=== PATIENT | male | born 1950 | race Caucasian/White ===

== ENCOUNTER 2017-08-16 08:59 | Emergency (ER) | payer MEDICARE ==
[2017-08-16 09:35] LABS: ABS Basophils 0.1 10^3/ul (0-0.2); ABS Eosinophils 0 10^3/ul (0-0.6); ABS Lymphocytes 1.8 10^3/ul (1.0-4.8); ABS Monocytes 0.7 10^3/ul (0-0.8); ABS Neutrophils 7.1 10^3/ul (1.5-7.7); ABS Nucleated RBC 0.01 10^3/ul; Eosinophil % 0.2 % (0-6); Hematocrit 38 % (42-52); Hemoglobin 13.1 g/dl (14.0-18.0); Lymphocyte % 18.3 % (25-47); Mean Corpuscular HGB Conc 34 g/dl (31-36); Mean Corpuscular Hemoglobin 30 pg (27-31); Mean Corpuscular Volume 87 fL (80-94); Mean Platelet Volume 8 um3 (7.4-10.4); Nucleated Red Blood Cells % 0.1; Platelet Count 304 10^3/ul (150-450); Red Blood Count 4.41 10^6/ul (4.0-5.4); Red Cell Distribution Width 14 % (10.5-15); White Blood Count 9.6 10^3/ul (3.5-10.8)
[2017-08-16 09:49] LABS: EGFR Non-African American 66.5 (>60)
[2017-08-16 09:52] LABS: INR 1.79 (0.77-1.02)
[2017-08-16] MEDS ORDERED: Pantoprazole IV* 40 MG IV ONE (10:01)
--- NOTE | 2017-08-16 10:04 | RAD ---
Indication: GI bleed, atrial fibrillation. Comparison: February 07, 2015 Technique: Upright AP 0940 hours Report: The extreme LEFT lung apex and periphery of the LEFT costophrenic angle are excluded from the [id number]. Clear visualized lungs and pleural spaces. Negative for pneumothorax. The heart, pulmonary vasculature, and mediastinal contours are unremarkable. IMPRESSION: No evidence for acute intrathoracic disease.
[2017-08-16] MEDS ORDERED: NS 0.9% 1000 ML* 1,000 ML IV ONE (10:31)
[2017-08-16] MEDS ORDERED: Labetalol IV* 5 MG/ML 20 ML VIAL IV PUSH ONE (10:35)
[2017-08-16] MEDS ORDERED: Pantoprazole IV* 80 MG in NS 0.9% 250 ML* 250 ML IVPB ONE (11:00)
--- NOTE | 2017-08-16 11:01 | ED ---
Brooks Solis Angela, scribed for Sara Henriquez MD on 08/16/17 at 0954 . GI/ HPI - HPI Summary HPI Summary: This pt is a 66 y/o male presenting to [facility] c/o bloody stools since yesterday at 18:00. Pt reports he has never had this before. Pt notes there was red blood in his stool without any clots all last night. He states he had "runny diarrhea " every couple of hours last night. He denies abd pain with this hematochezia. Pt additionally states feeling nauseous. Pt denies abd pain, vomiting, chest pain. He reports he had a colonoscopy done 3 months ago in [facility] in [place] and states "they left clips in me." States he does not know the results of that colonoscopy. PMHx includes atrial fibrillation. Pt is currently on baby aspirin and Coumadin. Although med list shows pt is on Eliquis, pt states he is on Coumadin. - History of Current Complaint Chief Complaint: EDGIBleed Time Seen by Provider: 08/16/17 09:17 Stated Complaint: BLOOD IN STOOL Hx Obtained From: Patient Onset/Duration: Started Days Ago - 1, Atraumatic, Still Present Timing: Constant, Lasting Days - 1 Severity: Severe Current Severity: Severe Vaginal Bleeding Description: Dark Red Pain Intensity: 0 Location of Pain: None Associated Signs and Symptoms: Positive: Nausea, Bright Red Blood w/Stool, Blood w/Stool, Diarrhea, Other: - NEG: abd pain. Negative: Vomiting, Chest Pain Aggravating Factor(s): Nothing Alleviating Factor(s): Nothing - Risk Factors GI Bleed Risk Factor(s): ASA, Coumadin - Allergy/Home Medications Allergies/Adverse Reactions: Allergies Allergy/AdvReac Type Severity Reaction Status Date / Time No Known Allergies Allergy Verified 07/31/14 16:59 Home Medications: Home Medications Apixaban* [Eliquis*] 5 mg PO BID 08/16/17 [History Confirmed 08/16/17] Aspirin [Aspirin 81 MG TAB] 81 mg PO DAILY 08/16/17 [History Confirmed 08/16/17] Atorvastatin* [Lipitor 40 MG*] 40 mg PO DAILY 08/16/17 [History Confirmed ] Diltiazem HCl Coated Beads [Cartia Xt] 240 mg PO DAILY 08/16/17 [History Confirmed 08/16/17] Lisinopril/HCTZ 20/12.5(NF) [Zestoretic 20/12.5(NF)] 20 mg PO BID 08/16/17 [ History Confirmed 08/16/17] PMH/Surg Hx/FS Hx/Imm Hx Previously Healthy: No Endocrine/Hematology History: Denies: Hx Diabetes Cardiovascular History: Reports: Hx Atrial Fibrillation, Hx Hypertension Denies: Hx Pacemaker/ICD History: Denies: Hx Renal Disease Sensory History: Reports: Hx Contacts or Glasses Denies: Hx Hearing Aid Opthamlomology History: Reports: Hx Contacts or Glasses Psychiatric History: Denies: Hx Panic Disorder - Surgical History Surgery Procedure, Year, and Place: colonoscopy 04/2017 Infectious Disease History: No Infectious Disease History: Denies: Traveled Outside the [place] in Last 30 Days - Family History Known Family History: Positive: Other - [place]. Mother: from old age. Father: stroke - Social History Occupation: Retired Lives: Alone Alcohol Use: Occasionally Substance Use Type: Reports: None Smoking Status (MU): Former Smoker Review of Systems Negative: Fever Negative: Chest Pain Respiratory: Negative Gastrointestinal: Other - bloody stools Positive: Diarrhea. Negative: Abdominal Pain, Vomiting Genitourinary: Negative Musculoskeletal: Negative Neurological: Negative Psychological: Normal All Other Systems Reviewed And Are Negative: Yes Physical Exam - Summary Physical Exam Summary: Appearance: Ill-appearing, no pain distress, Well-nourished, hypertensive, pulse 85 (pt on beta katelyn) Skin: Warm, color reflects adequate perfusion Head: Normal Head/Face inspection Eyes: Conjunctiva clear ENT: Normal inspection Neck: Supple, no nodes, no JVD Respiratory: Lungs clear, Normal breath sounds, no respiratory distress Cardio: RRR, No murmur, pulses normal, brisk capillary refill Abdomen: soft, nontender, no masses, no guarding, no rebound Rectal Exam: FRANCES Peter was present as tube trailer filler. Prostate is normal. No masses. Good rectal tone. There is colten stool. No external hemorrhoids. Musculoskeletal: Strength Intact/ ROM intact. No calf tenderness. No edema. Neuro: Alert, muscle tone normal, facial symmetry, speech normal, sensory/motor intact Psychological: Normal Triage Information Reviewed: Yes Vital Signs On Initial Exam: Initial Vitals Temp Pulse Resp BP Pulse Ox 97.9 F 85 22 202/106 100 08/16/17 09:01 08/16/17 09:01 08/16/17 09:01 08/16/17 09:01 08/16/17 09:01 Vital Signs Reviewed: Yes - Emerald Coma Scale Coma Scale Total: 15 Diagnostics - Vital Signs Vital Signs Temp Pulse Resp BP Pulse Ox 08/16/17 09:01 97.9 F 85 22 202/106 100 - Laboratory Lab Results: Lab Results 08/16/17 08/16/17 Range/Units 09:24 09:24 WBC 9.6 (3.5-10.8) 10^3/ul RBC 4.41 (4.0-5.4) 10^6/ul Hgb 13.1 L (14.0-18.0) g/dl Hct 38 L (42-52) % MCV 87 (80-94) fL MCH 30 (27-31) pg MCHC 34 (31-36) g/dl RDW 14 (10.5-15) % Plt Count 304 (150-450) 10^3/ul MPV 8 (7.4-10.4) um3 Neut % (Auto) 73.3 (38-83) % Lymph % (Auto) 18.3 L (25-47) % Barber % (Auto) 7.3 (1-9) % Eos % (Auto) 0.2 (0-6) % Baso % (Auto) 0.9 (0-2) % Absolute Neuts (auto) 7.1 (1.5-7.7) 10^3/ul Absolute Lymphs (auto) 1.8 (1.0-4.8) 10^3/ul Absolute Monos (auto) 0.7 (0-0.8) 10^3/ul Absolute Eos (auto) 0 (0-0.6) 10^3/ul Absolute Basos (auto) 0.1 (0-0.2) 10^3/ul Absolute Nucleated RBC 0.01 10^3/ul Nucleated RBC % 0.1 Blood Type Pending Antibody Screen Pending Result Diagrams: 08/16/17 09:24 08/16/17 09:24 Lab Statement: Any lab studies that have been ordered have been reviewed, and results considered in the medical decision making process. - Radiology Chest XR Xray Interpretation: No Acute Changes - IMPRESSION: No evidence for acute intrathoracic disease. Dr. Henriquez has reviewed this radiology report. Radiology Interpretation Completed By: Radiologist - EKG 09:31 Cardiac Rate: Tachycardia EKG Rhythm: Atrial Fibrillation - at 103 bpm EKG Interpretation: Nl AV conduction time. Nl QTc. Nl axis. Non-specific ST-T wave changes. Re-Evaluation - Re-Evaluation First Eval Re-Evaluation Time: 10:24 Change: Unchanged Comment: I advised the pt that he is going to be transferred to [facility] because there is no GI coverage at [facility] today. Pt expresses concern because he doesn't know how he'll get home from [facility]. BP remains high 182/101 P 85 , denies abd pain, no vomiting in ED. Started on protonix drip. GIGU Course/Dx - Course Course Of Treatment: Pt medications reviewed this visit. High blood pressure noted. EKG shows atrial fibrillation at 103 bpm with normal AV conduction time, normal QTc, normal axis, and non-specific ST-T wave changes. Chest XR reveals no evidence for acute intrathoracic disease. In the ED course the pt was given IV fluids, protonix 40mg IV and protonix drip started, and labetalol 10mg IV. I discussed pt care with the Dr. Street from [facility], who accepted the pt for transfer at 10:25am. I advised the pt that he is going to be transferred to [facility]. Pt expresses concern because he doesn't know how he'll get home from [facility]. Pt understands and is agreeable with the plan to transfer. - Diagnoses Differential Diagnoses - Male: Abdominal Aortic Aneurysm, Appendicitis, Bowel Obstruction, Colitis, Esophagitis/Gastritis, Esophageal Varices, Gastritis Provider Diagnoses: GI bleed, Hypertension, poor control, Afib, Contraindication to anticoagulation therapy - Physician Notifications Discussed Care Of Patient With: Dr. Street Time Discussed With Above Provider: 10:25 Instructed by Provider To: Transfer - I discussed pt care with the Dr. Street from [facility], who accepted the pt for transfer. Reason For Transfer: Specialty available at [facility] but not director of operations. - Critical Care Time Critical Care Time: 30-74 min - 30 minutes Discharge - Discharge Plan Condition: Guarded Disposition: TRANS HIGHER LVL OF CARE FAC Discharge Disposition Comment: Caleb Melendez Referrals: No Primary Care Phys,NOPCP [Primary Care Provider] - The documentation as recorded by the Brooks basurto Angela accurately reflects the service I personally performed and the decisions made by me, Sara Henriquez MD.
[2017-08-16 11:19] VITALS: BP 174/85
== END 2017-08-16 11:18 | disposition short-term general hospital (02) ==
LOC: ED 08:59
DX: K92.2 Gastrointestinal hemorrhage, unspecified (principal); I10 Essential (primary) hypertension; I48.91 Unspecified atrial fibrillation; Z79.01 Long term (current) use of anticoagulants; R11.0 Nausea; R19.7 Diarrhea, unspecified; Z87.891 Personal history of nicotine dependence
CPT/HCPCS: 36415; 71010; 80053; 82272; 85025; 85610; 85730; 86850; 86900; 86901; 93005; 96365; 96375; 99284

== ENCOUNTER 2022-06-20 08:54 | Inpatient (IN) ==
[2022-06-20] MEDS ORDERED: Lactated Ringers 1000 ml BAG 1,000 ML IV ONE (09:17)
[2022-06-20] MEDS ORDERED: Albuterol/Ipratropium NEB.SOL (2.5/0.5 MG) 3 ML NEB.SOLN INH ONE (09:21)
[2022-06-20] MEDS ORDERED: methylPREDNISolone SOD SUCC 125 mg 2 ML VIAL IV ONE (09:21)
[2022-06-20 11:19] LABS: Hematocrit 40 % (42-52); Mean Corpuscular HGB Conc 32 g/dL (31-36); Mean Corpuscular Hemoglobin 27 pg (27-31); Mean Corpuscular Volume 85 fL (80-94); Mean Platelet Volume 8.1 fL (7.4-10.4); Platelet Count 302 10^3/uL (150-450); Red Blood Count 4.73 10^6 /uL (4.18-5.48); Red Cell Distribution Width 17 % (10-15); White Blood Count 18.4 10^3/uL (3.5-10.8)
[2022-06-20 11:40] LABS: INR 1.51 (0.89-1.11)
[2022-06-20] MEDS ORDERED: Furosemide 40 mg/4 ml IV VIAL IV ONE (11:59)
[2022-06-20 12:05] LABS: Albumin 3.6 g/dL (3.2-5.2); Albumin/Globulin Ratio 1.1 (1-3); Calcium 8.2 mg/dL (8.6-10.3); Globulin 3.3 g/dL (2-4); Potassium 4.8 mmol/L (3.5-5.0); Total Bilirubin 2.2 mg/dL (0.2-1.0); Total Protein 6.9 g/dL (6.4-8.9); eGFR CKD-EPI 73.8 (>60)
[2022-06-20 12:12] LABS: ABS Lymphocytes 0.6 10^3/ul (1.0-4.8); ABS Monocytes 1.6 10^3/ul (0-0.8); ABS Neutrophils 16.2 10^3/ul (1.5-7.7); Eosinophil % 0.1 %; Lymphocyte % 3.1 %; Nucleated Red Blood Cells % 0.1
[2022-06-20 13:43] LABS: Urine Appearance Cloudy; Urine Bilirubin Negative (Negative); Urine Blood Negative (Negative); Urine Color Amber; Urine Glucose Negative (Negative); Urine Ketones Negative (Negative); Urine Nitrite Negative (Negative); Urine Protein 2+(100 mg/dL) (Negative); Urine Specific Gravity 1.017 (1.002-1.030); Urine Urobilinogen Negative (Negative)
[2022-06-20 13:50] LABS: Urine Bacteria Absent (Absent); Urine Red Blood Cell Trace(0-2/hpf) (Absent); Urine Squamous Epithelial Cell Present (Absent); Urine White Blood Cell Trace(0-5/hpf) (Absent)
[2022-06-20 13:52] LABS: Venous Bicarbonate HCO3 21.6 mmol/L (24-28)
[2022-06-20 13:54] LABS: High Sensitivity Troponin 1 Hr 4409 pg/mL (<20)
[2022-06-20] MEDS ORDERED: Aspirin EC 325 mg TAB.EC PO ONE (13:58)
[2022-06-20] MEDS ORDERED: Furosemide 20 mg/2 ml IV VIAL IV ONE (14:16)
[2022-06-20] MEDS ORDERED: Heparin 5000 UNITS/ML 1 mL VIAL IV ONE (15:00)
[2022-06-20 15:09] LABS: ABS Basophils 0.1 10^3/ul (0-0.2); ABS Lymphocytes 0.3 10^3/ul (1.0-4.8); ABS Monocytes 0.4 10^3/ul (0-0.8); ABS Neutrophils 15.3 10^3/ul (1.5-7.7); Hematocrit 40 % (42-52); Mean Corpuscular HGB Conc 32 g/dL (31-36); Mean Corpuscular Hemoglobin 28 pg (27-31); Mean Corpuscular Volume 85 fL (80-94); Mean Platelet Volume 7.8 fL (7.4-10.4); Nucleated Red Blood Cells % 0.1; Platelet Count 284 10^3/uL (150-450); Red Cell Distribution Width 17 % (10-15); White Blood Count 16.1 10^3/uL (3.5-10.8)
[2022-06-20] MEDS ORDERED: Nitroglycerin 0.6 mg TAB SL PRN (15:46)
[2022-06-20 15:56] LABS: eGFR CKD-EPI 68.5 (>60)
[2022-06-20] MEDS: Heparin DRIP 25,000 UNITS BAG 25,000 UNITS/500 ML BAG IV SCH (17:23)
[2022-06-20] MEDS: Heparin 5000 UNITS/ML 1 mL VIAL IV SCH (17:24)
[2022-06-20] MEDS: Petroleum Jelly 1.75 Oz (small jar) TOPICAL SCH (22:16)
[2022-06-20] MEDS: Triamcinolone 0.025% OINT 15 GM TUBE TOPICAL SCH (22:18)
[2022-06-21] MEDS: Heparin 5000 UNITS/ML 1 mL VIAL IV SCH (03:26)
[2022-06-21 06:28] LABS: ABS Basophils 0.1 10^3/ul (0-0.2); ABS Lymphocytes 0.6 10^3/ul (1.0-4.8); ABS Monocytes 0.7 10^3/ul (0-0.8); ABS Neutrophils 14.8 10^3/ul (1.5-7.7); Hematocrit 36 % (42-52); Hemoglobin 11.7 g/dL (14.0-18.0); Lymphocyte % 3.9 %; Mean Corpuscular HGB Conc 33 g/dL (31-36); Mean Corpuscular Hemoglobin 28 pg (27-31); Mean Corpuscular Volume 84 fL (80-94); Mean Platelet Volume 7.8 fL (7.4-10.4); Platelet Count 276 10^3/uL (150-450); Red Blood Count 4.24 10^6 /uL (4.18-5.48); Red Cell Distribution Width 17 % (10-15); White Blood Count 16.2 10^3/uL (3.5-10.8)
[2022-06-21 07:31] LABS: Albumin 3.4 g/dL (3.2-5.2); Calcium 8.6 mg/dL (8.6-10.3); Globulin 3.3 g/dL (2-4); Magnesium 2.2 mg/dL (1.9-2.7); Potassium 4.6 mmol/L (3.5-5.0); Total Bilirubin 1.4 mg/dL (0.2-1.0); Total Protein 6.7 g/dL (6.4-8.9); eGFR CKD-EPI 70.7 (>60)
[2022-06-21] MEDS: Heparin DRIP 25,000 UNITS BAG 25,000 UNITS/500 ML BAG IV SCH ×3 (08:05→19:46)
[2022-06-21 08:11] LABS: Ferritin 334.9 ng/mL (24-336)
[2022-06-21] MEDS ORDERED: VERAPAMIL 2.5 MG/ML 2 ML VIAL ** 5 mg/2 ml ONE ×2 (09:03→09:09)
[2022-06-21] MEDS ORDERED: Midazolam 5 mg/5 ml VIAL 1 mg/ml 5 ml VIAL (5 mg) ONE (09:03)
[2022-06-21] MEDS ORDERED: fentaNYL 100 mcg/2 ml 50 MCG/ML VIAL ONE ×2 (09:03→11:00)
[2022-06-21] MEDS ORDERED: nitroGLYCERIN DRIP 25,000 MCG/250 ML BTL ONE (09:03)
[2022-06-21] MEDS ORDERED: Heparin 1,000 UNIT/ML 10 ml (10,000 UNITS) CATHLAB/DIALYSIS ONE ×2 (09:03→10:37)
[2022-06-21] MEDS ORDERED: Heparin 2 UNITS/ML 1000 mls 2,000 ML IV ONE (09:03)
[2022-06-21] MEDS ORDERED: Iohexol 350 (CONTRAST) 100 ML PAK IV ONE ×4 (09:04→10:45)
[2022-06-21] MEDS ORDERED: Lidocaine 1% MPF 5 ML VIAL ONE (09:04)
[2022-06-21] MEDS ORDERED: niCARdipine 0.1MG/ML IVPREMIX 20 MG/200 ML BAG IV ONE (10:23)
[2022-06-21] MEDS ORDERED: Eptifibatide IV (Load dose) 2 MG/ML 10 ml VIAL ONE ×2 (10:44→10:51)
[2022-06-21] MEDS ORDERED: Ondansetron 4 mg VIAL 2 MG/ML 2 ml VIAL IV PRN (11:35)
[2022-06-21] MEDS ORDERED: Furosemide 40 mg/4 ml IV VIAL ONE (12:02)
[2022-06-21] MEDS ORDERED: Furosemide 40 mg/4 ml IV VIAL IV SLOW PU ONE (12:03)
[2022-06-21] MEDS ORDERED: Furosemide 20 mg/2 ml IV VIAL IV SLOW PU ONE (13:21)
[2022-06-21] MEDS: Aspirin EC 81 mg TAB.EC (enteric coated) PO SCH (13:51)
[2022-06-21] MEDS: Metoprolol Tartrate 5 mg VIAL 5 ml VIAL (1 mg/ml) IV PRN ×2 (13:51→18:40)
[2022-06-21] MEDS ORDERED: Bumetanide IV 0.25 MG/ML 4 ml VIAL (1 mg) SLOW PUSH ONE (14:09)
[2022-06-21 14:49] LABS: HDL Cholesterol 31.8 mg/dL
[2022-06-21] MEDS ORDERED: Dextrose 50% Syringe 50 ml 25 GM/50 ML SYRINGE IV PUSH PRN (15:14)
[2022-06-21] MEDS: Triamcinolone 0.025% OINT 15 GM TUBE TOPICAL SCH ×2 (16:28→19:26)
[2022-06-21] MEDS: cefTRIAXone 1 gm/50 mL D5W 1 GM/50 ML BAG IV SCH (17:11)
[2022-06-21] MEDS: Petroleum Jelly 1.75 Oz (small jar) TOPICAL SCH (22:29)
[2022-06-22 01:07] LABS: Calcium 8.3 mg/dL (8.6-10.3); Magnesium 2.2 mg/dL (1.9-2.7); Potassium 4.2 mmol/L (3.5-5.0); eGFR CKD-EPI 49.8 (>60)
[2022-06-22] MEDS: Heparin 5000 UNITS/ML 1 mL VIAL IV SCH ×2 (02:31→10:43)
[2022-06-22 05:39] LABS: ABS Lymphocytes 1.4 10^3/ul (1.0-4.8); ABS Monocytes 1.3 10^3/ul (0-0.8); ABS Neutrophils 14.1 10^3/ul (1.5-7.7); Eosinophil % 0.1 %; Hematocrit 35 % (42-52); Hemoglobin 11.4 g/dL (14.0-18.0); Lymphocyte % 8.2 %; Mean Corpuscular HGB Conc 32 g/dL (31-36); Mean Corpuscular Hemoglobin 28 pg (27-31); Mean Corpuscular Volume 85 fL (80-94); Mean Platelet Volume 7.6 fL (7.4-10.4); Platelet Count 307 10^3/uL (150-450); Red Blood Count 4.12 10^6 /uL (4.18-5.48); Red Cell Distribution Width 17 % (10-15); White Blood Count 16.8 10^3/uL (3.5-10.8)
[2022-06-22 06:12] LABS: Albumin 3.3 g/dL (3.2-5.2); Calcium 8.2 mg/dL (8.6-10.3); Globulin 3.4 g/dL (2-4); Magnesium 2.1 mg/dL (1.9-2.7); Potassium 4.2 mmol/L (3.5-5.0); Total Bilirubin 0.7 mg/dL (0.2-1.0); Total Protein 6.7 g/dL (6.4-8.9); eGFR CKD-EPI 53.2 (>60)
[2022-06-22] MEDS ORDERED: Bumetanide IV 0.25 MG/ML 4 ml VIAL (1 mg) SLOW PUSH SCH ×2 (08:01→09:00)
[2022-06-22] MEDS: Aspirin EC 81 mg TAB.EC (enteric coated) PO SCH (08:29)
[2022-06-22 08:48] LABS: TSH Ultra Thyroid Stim Horm 1.94 mcIU/mL (0.34-5.60)
[2022-06-22] MEDS ORDERED: Bumetanide IV 0.25 MG/ML 4 ml VIAL (1 mg) SLOW PUSH ONE (09:16)
[2022-06-22] MEDS: Triamcinolone 0.025% OINT 15 GM TUBE TOPICAL SCH ×2 (09:46→21:09)
[2022-06-22] MEDS: Heparin DRIP 25,000 UNITS BAG 25,000 UNITS/500 ML BAG IV SCH (12:17)
[2022-06-22] MEDS ORDERED: Metoprolol Tartrate 5 mg VIAL 5 ml VIAL (1 mg/ml) IV PRN (13:43)
[2022-06-22] MEDS: Nystatin TOP POWDER 15 GM BTL TOPICAL SCH ×2 (15:15→21:08)
[2022-06-22] MEDS: cefTRIAXone 1 gm/50 mL D5W 1 GM/50 ML BAG IV SCH (17:02)
[2022-06-22] MEDS: Petroleum Jelly 1.75 Oz (small jar) TOPICAL SCH (21:10)
[2022-06-23] MEDS: Heparin DRIP 25,000 UNITS BAG 25,000 UNITS/500 ML BAG IV SCH ×2 (00:22→12:23)
[2022-06-23 05:45] LABS: ABS Eosinophils 0.2 10^3/ul (0-0.6); ABS Lymphocytes 1.1 10^3/ul (1.0-4.8); ABS Monocytes 0.9 10^3/ul (0-0.8); ABS Neutrophils 7.7 10^3/ul (1.5-7.7); Hematocrit 34 % (42-52); Hemoglobin 11.3 g/dL (14.0-18.0); Lymphocyte % 11.2 %; Mean Corpuscular HGB Conc 34 g/dL (31-36); Mean Corpuscular Hemoglobin 28 pg (27-31); Mean Corpuscular Volume 85 fL (80-94); Mean Platelet Volume 7.7 fL (7.4-10.4); Platelet Count 297 10^3/uL (150-450); Red Cell Distribution Width 17 % (10-15); White Blood Count 9.9 10^3/uL (3.5-10.8)
[2022-06-23 06:35] LABS: Calcium 8.1 mg/dL (8.6-10.3); Magnesium 2.1 mg/dL (1.9-2.7); Potassium 4.5 mmol/L (3.5-5.0)
[2022-06-23] MEDS ORDERED: Bumetanide IV 0.25 MG/ML 4 ml VIAL (1 mg) SLOW PUSH ONE ×2 (07:22)
[2022-06-23] MEDS: Aspirin EC 81 mg TAB.EC (enteric coated) PO SCH (08:35)
[2022-06-23] MEDS: Triamcinolone 0.025% OINT 15 GM TUBE TOPICAL SCH ×2 (08:35→20:45)
[2022-06-23] MEDS: Nystatin TOP POWDER 15 GM BTL TOPICAL SCH ×2 (08:37→20:44)
[2022-06-23] MEDS ORDERED: Warfarin per PHARMACY **NOTE FOLLOW UP SCH (10:00)
[2022-06-23 11:25] LABS: INR 1.25 (0.89-1.11)
[2022-06-23] MEDS: cefTRIAXone 1 gm/50 mL D5W 1 GM/50 ML BAG IV SCH (18:01)
[2022-06-23] MEDS: Petroleum Jelly 1.75 Oz (small jar) TOPICAL SCH (20:45)
[2022-06-24] MEDS: Heparin DRIP 25,000 UNITS BAG 25,000 UNITS/500 ML BAG IV SCH (02:12)
[2022-06-24 05:26] LABS: ABS Eosinophils 0.3 10^3/ul (0-0.6); ABS Monocytes 0.9 10^3/ul (0-0.8); ABS Neutrophils 7.7 10^3/ul (1.5-7.7); Eosinophil % 3.2 %; Hematocrit 37 % (42-52); Lymphocyte % 10.1 %; Mean Corpuscular HGB Conc 33 g/dL (31-36); Mean Corpuscular Hemoglobin 28 pg (27-31); Mean Corpuscular Volume 85 fL (80-94); Mean Platelet Volume 8.1 fL (7.4-10.4); Nucleated Red Blood Cells % 0.1; Platelet Count 303 10^3/uL (150-450); Red Cell Distribution Width 17 % (10-15)
[2022-06-24 05:36] LABS: INR 1.1 (0.89-1.11)
[2022-06-24 05:45] LABS: Calcium 8.6 mg/dL (8.6-10.3); Magnesium 2.1 mg/dL (1.9-2.7); Potassium 4.4 mmol/L (3.5-5.0); eGFR CKD-EPI 63.2 (>60)
[2022-06-24] MEDS: Aspirin EC 81 mg TAB.EC (enteric coated) PO SCH (10:35)
[2022-06-24] MEDS: Nystatin TOP POWDER 15 GM BTL TOPICAL SCH ×2 (14:00→21:31)
[2022-06-24] MEDS: Triamcinolone 0.025% OINT 15 GM TUBE TOPICAL SCH ×2 (14:00→21:31)
[2022-06-24] MEDS: cefTRIAXone 1 gm/50 mL D5W 1 GM/50 ML BAG IV SCH (16:42)
[2022-06-24] MEDS: Warfarin DAILY REMINDER **NOTE FOLLOW UP SCH (17:02)
[2022-06-24] MEDS: Petroleum Jelly 1.75 Oz (small jar) TOPICAL SCH (21:31)
[2022-06-25 06:23] LABS: ABS Basophils 0.1 10^3/ul (0-0.2); ABS Eosinophils 0.3 10^3/ul (0-0.6); ABS Lymphocytes 0.9 10^3/ul (1.0-4.8); ABS Monocytes 0.7 10^3/ul (0-0.8); ABS Neutrophils 7.6 10^3/ul (1.5-7.7); Eosinophil % 3.5 %; Hematocrit 35 % (42-52); Hemoglobin 11.4 g/dL (14.0-18.0); Lymphocyte % 9.2 %; Mean Corpuscular HGB Conc 33 g/dL (31-36); Mean Corpuscular Hemoglobin 28 pg (27-31); Mean Corpuscular Volume 85 fL (80-94); Mean Platelet Volume 8.1 fL (7.4-10.4); Platelet Count 281 10^3/uL (150-450); Red Blood Count 4.05 10^6 /uL (4.18-5.48); Red Cell Distribution Width 17 % (10-15); White Blood Count 9.7 10^3/uL (3.5-10.8)
[2022-06-25 06:29] LABS: INR 1.2 (0.89-1.11)
[2022-06-25 06:43] LABS: Calcium 8.6 mg/dL (8.6-10.3); Potassium 4.8 mmol/L (3.5-5.0)
[2022-06-25] MEDS: Aspirin EC 81 mg TAB.EC (enteric coated) PO SCH (08:26)
[2022-06-25] MEDS: Nystatin TOP POWDER 15 GM BTL TOPICAL SCH ×2 (10:43→21:16)
[2022-06-25] MEDS: Triamcinolone 0.025% OINT 15 GM TUBE TOPICAL SCH ×2 (11:43→21:16)
[2022-06-25] MEDS ORDERED: cefTRIAXone 1 gm/50 mL D5W 1 GM/50 ML BAG IV ONE (13:00)
[2022-06-25] MEDS: Warfarin DAILY REMINDER **NOTE FOLLOW UP SCH (17:39)
[2022-06-25] MEDS: Petroleum Jelly 1.75 Oz (small jar) TOPICAL SCH (21:16)
[2022-06-26 06:42] LABS: INR 1.39 (0.89-1.11)
[2022-06-26 08:01] VITALS: BP 130/74
[2022-06-26] MEDS: Aspirin EC 81 mg TAB.EC (enteric coated) PO SCH (09:03)
[2022-06-26] MEDS: Nystatin TOP POWDER 15 GM BTL TOPICAL SCH (10:18)
[2022-06-26] MEDS: Triamcinolone 0.025% OINT 15 GM TUBE TOPICAL SCH (10:19)
== END 2022-06-26 11:08 | disposition home or self-care (01) | DRG 246 ==
LOC: ED 08:54 → SUATTDRO 15:13 → EDHOLD 15:13 → ICU 06-21 11:10 → MEDTELE 06-23 11:51
PROVIDERS: ADMIT Internal Medicine; ATTEND Internal Medicine

== ENCOUNTER 2023-01-23 20:02 | Inpatient (IN) ==
[2023-01-23 20:33] LABS: ABS Basophils 0.1 10^3/uL (0.0-0.1); ABS Eosinophils 0.3 10^3/uL (0.0-0.5); ABS Lymphocytes 0.8 10^3/uL (1.0-4.8); ABS Monocytes 0.7 10^3/uL (0.0-1.1); ABS Neutrophils 7.1 10^3/uL (1.5-7.6); ABS Nucleated RBC 0.01 10^3/ul; Eosinophil % 2.9 %; Hematocrit 40.4 % (38-53); Hemoglobin 13.1 g/dL (13.2-16.3); Lymphocyte % 9.1 %; Mean Corpuscular Hgb Conc 32.5 g/dL (31-36); Mean Corpuscular Volume 83.1 fL (80-97); Mean Platelet Volume 7.7 fL (7.5-11.2); Nucleated Red Blood Cells % 0.1 /100 WBC (0.0-0.4); Platelet Count 366 10^3/uL (150-450); Red Blood Count 4.87 10^6/uL (4.06-5.63); Red Cell Distribution Width 20.5 % (12-17); White Blood Count 9.1 10^3/uL (3.6-10.2)
[2023-01-23 20:47] LABS: Albumin 3.8 g/dL (3.2-5.2); Albumin/Globulin Ratio 1.2 (1-3); Calcium 8.9 mg/dL (8.6-10.3); Creatinine, Serum 1.05 mg/dL (0.67-1.17); Globulin 3.2 g/dL (2-4); Magnesium 1.7 mg/dL (1.9-2.7); Potassium 3.8 mmol/L (3.5-5.0); Total Bilirubin 1.4 mg/dL (0.2-1.0); eGFR CKD-EPI 75.9 (>60)
[2023-01-23] MEDS ORDERED: Furosemide 40 mg/4 ml IV VIAL IV SLOW PU ONE (21:38)
[2023-01-23 22:00] LABS: High Sensitivity Troponin 1 Hr 31 pg/mL (<20)
[2023-01-23 22:51] LABS: INR 1.51 (0.88-1.18)
[2023-01-23] MEDS ORDERED: Warfarin per PHARMACY **NOTE FOLLOW UP SCH (23:45)
[2023-01-24] MEDS ORDERED: Iohexol 350 (CONTRAST) 500 ML MDV IV ONE (00:42)
[2023-01-24] MEDS ORDERED: Iodixanol (CONTRAST) 320 MG/ML 100 ML SDV IV ONE (00:45)
[2023-01-24 00:58] LABS: Urine Appearance Clear; Urine Bilirubin Negative (Negative); Urine Blood 1+ (Negative); Urine Color Colorless; Urine Glucose Negative (Negative); Urine Ketones Negative (Negative); Urine Nitrite Negative (Negative); Urine Protein Negative (Negative); Urine Specific Gravity 1.004 (1.002-1.030); Urine Urobilinogen Negative (Negative)
[2023-01-24 01:04] LABS: Urine Bacteria 1+ (Absent); Urine Red Blood Cell 1+(3-5/hpf) (Absent); Urine Squamous Epithelial Cell Present (Absent); Urine White Blood Cell Absent (Absent)
[2023-01-24] MEDS ORDERED: Haloperidol 5 mg/ml SDV IV/IM 5 MG/ML AMP IV SLOW PU ONE (02:45)
[2023-01-24] MEDS ORDERED: Haloperidol 5 mg/ml SDV IV/IM 5 MG/ML AMP ONE (02:49)
[2023-01-24 04:31] LABS: ABS Basophils 0.1 10^3/uL (0.0-0.1); ABS Eosinophils 0.2 10^3/uL (0.0-0.5); ABS Lymphocytes 0.7 10^3/uL (1.0-4.8); ABS Neutrophils 8.5 10^3/uL (1.5-7.6); ABS Nucleated RBC 0.01 10^3/ul; Eosinophil % 2.2 %; Hematocrit 39.7 % (38-53); Hemoglobin 13.1 g/dL (13.2-16.3); Lymphocyte % 6.7 %; Mean Corpuscular Hemoglobin 26.9 pg (27-33); Mean Corpuscular Hgb Conc 32.9 g/dL (31-36); Mean Corpuscular Volume 81.8 fL (80-97); Mean Platelet Volume 7.6 fL (7.5-11.2); Nucleated Red Blood Cells % 0.1 /100 WBC (0.0-0.4); Platelet Count 363 10^3/uL (150-450); Red Blood Count 4.85 10^6/uL (4.06-5.63); Red Cell Distribution Width 20.5 % (12-17); White Blood Count 10.6 10^3/uL (3.6-10.2)
[2023-01-24 04:36] LABS: INR 1.6 (0.88-1.18)
[2023-01-24 04:47] LABS: Calcium 8.7 mg/dL (8.6-10.3); Creatinine, Serum 1.1 mg/dL (0.67-1.17); HDL Cholesterol 27.4 mg/dL; Magnesium 1.8 mg/dL (1.9-2.7); Potassium 3.3 mmol/L (3.5-5.0); eGFR CKD-EPI 71.8 (>60)
[2023-01-24] MEDS ORDERED: Potassium Chlor 20 meq TAB.ER PO ONE (07:09)
[2023-01-24] MEDS ORDERED: Magnesium Sulfate IV 3 GM in NS 0.9% 100 ml BAG 100 ML IVPB ONE (07:09)
[2023-01-24] MEDS: Aspirin EC 81 mg TAB.EC (enteric coated) PO SCH (08:15)
[2023-01-24] MEDS ORDERED: Furosemide 40 mg/4 ml IV VIAL IV SLOW PU ONE ×2 (11:37→15:22)
[2023-01-24] MEDS: Triamcinolone 0.025% OINT 15 GM TUBE TOPICAL SCH (12:38)
[2023-01-24] MEDS ORDERED: Sulfur Hexaflouride MICROSPHR 25 MG VIAL ONE (13:54)
[2023-01-24] MEDS: Warfarin DAILY REMINDER **NOTE FOLLOW UP SCH (17:14)
[2023-01-24] MEDS ORDERED: Albuterol 2.5mg/3 ml (0.083%) NEB.SOLN INH ONE (17:37)
[2023-01-24 18:02] LABS: C Reactive Protein 30.55 mg/L (<8.01)
[2023-01-25] MEDS ORDERED: Furosemide 40 mg/4 ml IV VIAL IV SLOW PU ONE (06:00)
[2023-01-25 07:04] LABS: ABS Basophils 0.1 10^3/uL (0.0-0.1); ABS Eosinophils 0.4 10^3/uL (0.0-0.5); ABS Lymphocytes 0.6 10^3/uL (1.0-4.8); ABS Monocytes 0.9 10^3/uL (0.0-1.1); ABS Neutrophils 7.7 10^3/uL (1.5-7.6); Eosinophil % 3.9 %; Hematocrit 40.9 % (38-53); Hemoglobin 13.3 g/dL (13.2-16.3); Lymphocyte % 6.6 %; Mean Corpuscular Hemoglobin 26.9 pg (27-33); Mean Corpuscular Hgb Conc 32.6 g/dL (31-36); Mean Corpuscular Volume 82.5 fL (80-97); Mean Platelet Volume 7.6 fL (7.5-11.2); Nucleated Red Blood Cells % 0.1 /100 WBC (0.0-0.4); Platelet Count 400 10^3/uL (150-450); Red Blood Count 4.96 10^6/uL (4.06-5.63); Red Cell Distribution Width 20.9 % (12-17); White Blood Count 9.7 10^3/uL (3.6-10.2)
[2023-01-25 07:05] LABS: INR 1.69 (0.88-1.18)
[2023-01-25 07:19] LABS: C Reactive Protein 36.85 mg/L (<8.01); Calcium 9.2 mg/dL (8.6-10.3); Creatinine, Serum 1.35 mg/dL (0.67-1.17); Magnesium 2.1 mg/dL (1.9-2.7); Potassium 3.9 mmol/L (3.5-5.0); eGFR CKD-EPI 56.1 (>60)
[2023-01-25] MEDS: Enoxaparin 100 MG/ML SYR SUBCUT SCH ×2 (08:55→20:10)
[2023-01-25] MEDS: Aspirin EC 81 mg TAB.EC (enteric coated) PO SCH (08:55)
[2023-01-25] MEDS: Triamcinolone 0.025% OINT 15 GM TUBE TOPICAL SCH (08:56)
[2023-01-26] MEDS ORDERED: Ondansetron 4 mg VIAL 2 MG/ML 2 ml VIAL IV ONE (01:54)
[2023-01-26] MEDS: Warfarin DAILY REMINDER **NOTE FOLLOW UP SCH ×2 (07:15→16:49)
[2023-01-26] MEDS: Enoxaparin 100 MG/ML SYR SUBCUT SCH ×3 (08:24→22:00)
[2023-01-26] MEDS: Aspirin EC 81 mg TAB.EC (enteric coated) PO SCH ×2 (08:24→08:52)
[2023-01-26] MEDS: Triamcinolone 0.025% OINT 15 GM TUBE TOPICAL SCH (08:24)
[2023-01-26] MEDS ORDERED: Haloperidol 5 mg/ml SDV IV/IM 5 MG/ML AMP ONE (10:03)
[2023-01-26] MEDS ORDERED: Haloperidol 5 mg/ml SDV IV/IM 5 MG/ML AMP IV SLOW PU ONE (10:03)
[2023-01-26] MEDS ORDERED: Haloperidol 5 mg/ml SDV IV/IM 5 MG/ML AMP IV SLOW PU PRN (14:20)
[2023-01-26 14:26] LABS: INR 2.15 (0.88-1.18)
[2023-01-26 15:06] LABS: Calcium 9.2 mg/dL (8.6-10.3); Magnesium 1.9 mg/dL (1.9-2.7); Potassium 4.3 mmol/L (3.5-5.0); eGFR CKD-EPI 80.5 (>60)
[2023-01-27] MEDS: Aspirin EC 81 mg TAB.EC (enteric coated) PO SCH (09:23)
[2023-01-27] MEDS ORDERED: Furosemide 20 mg/2 ml IV VIAL IV ONE (10:52)
[2023-01-27 10:55] LABS: ABS Basophils 0.1 10^3/uL (0.0-0.1); ABS Lymphocytes 0.5 10^3/uL (1.0-4.8); ABS Monocytes 1.4 10^3/uL (0.0-1.1); ABS Neutrophils 11.2 10^3/uL (1.5-7.6); ABS Nucleated RBC 0.01 10^3/ul; Eosinophil % 0.3 %; Hematocrit 40.5 % (38-53); Mean Corpuscular Hemoglobin 26.4 pg (27-33); Mean Corpuscular Hgb Conc 32.1 g/dL (31-36); Mean Corpuscular Volume 82.3 fL (80-97); Mean Platelet Volume 7.8 fL (7.5-11.2); Nucleated Red Blood Cells % 0.1 /100 WBC (0.0-0.4); Platelet Count 339 10^3/uL (150-450); Red Blood Count 4.92 10^6/uL (4.06-5.63); Red Cell Distribution Width 20.6 % (12-17); White Blood Count 13.3 10^3/uL (3.6-10.2)
[2023-01-27 10:59] LABS: INR 2.52 (0.88-1.18)
[2023-01-27 11:10] LABS: Calcium 9.2 mg/dL (8.6-10.3); Creatinine, Serum 1.05 mg/dL (0.67-1.17); Potassium 4.3 mmol/L (3.5-5.0); eGFR CKD-EPI 75.9 (>60)
[2023-01-27] MEDS: Triamcinolone 0.025% OINT 15 GM TUBE TOPICAL SCH (11:43)
[2023-01-27 15:39] LABS: Urine Appearance Clear; Urine Bilirubin Negative (Negative); Urine Blood Negative (Negative); Urine Color Yellow; Urine Glucose Negative (Negative); Urine Ketones Negative (Negative); Urine Nitrite Negative (Negative); Urine Protein 2+(100 mg/dL) (Negative); Urine Specific Gravity 1.014 (1.002-1.030); Urine Urobilinogen Negative (Negative)
[2023-01-27 15:50] LABS: C Reactive Protein 116.02 mg/L (<8.01)
[2023-01-27 15:50] LABS: Urine Bacteria Absent (Absent); Urine Red Blood Cell Trace(0-2/hpf) (Absent); Urine White Blood Cell Trace(0-5/hpf) (Absent)
[2023-01-27] MEDS ORDERED: cefTRIAXone 1 gm/50 mL D5W 1 GM/50 ML BAG IV SCH (16:30)
[2023-01-27] MEDS ORDERED: Azithromycin 500 mg/250 ml NS 500 MG/250 ML BAG IVPB SCH (17:00)
[2023-01-27] MEDS: Warfarin DAILY REMINDER **NOTE FOLLOW UP SCH (17:23)
[2023-01-28 08:52] LABS: ABS Basophils 0.1 10^3/uL (0.0-0.1); ABS Eosinophils 0.1 10^3/uL (0.0-0.5); ABS Lymphocytes 0.6 10^3/uL (1.0-4.8); ABS Monocytes 1.1 10^3/uL (0.0-1.1); ABS Neutrophils 7.8 10^3/uL (1.5-7.6); ABS Nucleated RBC 0.01 10^3/ul; Eosinophil % 1.1 %; Hematocrit 40.1 % (38-53); Hemoglobin 13.1 g/dL (13.2-16.3); Lymphocyte % 6.1 %; Mean Corpuscular Hemoglobin 26.6 pg (27-33); Mean Corpuscular Hgb Conc 32.7 g/dL (31-36); Mean Corpuscular Volume 81.4 fL (80-97); Mean Platelet Volume 7.7 fL (7.5-11.2); Nucleated Red Blood Cells % 0.1 /100 WBC (0.0-0.4); Platelet Count 304 10^3/uL (150-450); Red Blood Count 4.93 10^6/uL (4.06-5.63); Red Cell Distribution Width 20.1 % (12-17); White Blood Count 9.6 10^3/uL (3.6-10.2)
[2023-01-28 09:07] LABS: INR 2.29 (0.88-1.18)
[2023-01-28 09:10] LABS: Calcium 9.2 mg/dL (8.6-10.3); Creatinine, Serum 0.98 mg/dL (0.67-1.17); eGFR CKD-EPI 82.4 (>60)
[2023-01-28] MEDS ORDERED: Furosemide 20 mg/2 ml IV VIAL IV ONE (09:29)
[2023-01-28] MEDS: Aspirin EC 81 mg TAB.EC (enteric coated) PO SCH (10:27)
[2023-01-28] MEDS: Triamcinolone 0.025% OINT 15 GM TUBE TOPICAL SCH (11:21)
[2023-01-28 13:34] VITALS: BP 129/71
== END 2023-01-28 13:30 | disposition home or self-care (01) | DRG 291 ==
LOC: EDHOLD 20:02 → ED 20:02 → SUATTDRO 23:09 → EDHOLD 01-24 08:46 → MEDTELE 01-24 08:51
PROVIDERS: ADMIT Hospitalist; ATTEND Internal Medicine

== ENCOUNTER 2023-02-26 09:10 | Inpatient (IN) ==
[2023-02-26 09:42] LABS: Hematocrit 46.3 % (38-53); Hemoglobin 14.9 g/dL (13.2-16.3); Mean Corpuscular Hemoglobin 26.6 pg (27-33); Mean Corpuscular Hgb Conc 32.3 g/dL (31-36); Mean Corpuscular Volume 82.3 fL (80-97); Mean Platelet Volume 7.7 fL (7.5-11.2); Platelet Count 370 10^3/uL (150-450); Red Blood Count 5.63 10^6/uL (4.06-5.63); Red Cell Distribution Width 19.9 % (12-17); White Blood Count 16.5 10^3/uL (3.6-10.2)
[2023-02-26 09:51] LABS: INR 3.09 (0.88-1.18)
[2023-02-26 09:59] LABS: Albumin 4.6 g/dL (3.2-5.2); Albumin/Globulin Ratio 1.1 (1-3); Calcium 9.7 mg/dL (8.6-10.3); Creatinine, Serum 1.06 mg/dL (0.67-1.17); Globulin 4.2 g/dL (2-4); Potassium 4.1 mmol/L (3.5-5.0); Total Bilirubin 1.7 mg/dL (0.2-1.0); Total Protein 8.8 g/dL (6.4-8.9)
[2023-02-26 10:04] LABS: Magnesium 1.8 mg/dL (1.9-2.7)
[2023-02-26] MEDS ORDERED: Magnesium Sulfate IV 1GM/100ML 1 GM/100 ML BAG IV ONE (10:07)
[2023-02-26] MEDS ORDERED: Nitro 2% OINT (Nitroglycerin) 1 INCH/PAK TOPICAL ONE (10:21)
[2023-02-26] MEDS ORDERED: Furosemide 40 mg/4 ml IV VIAL IV SLOW PU ONE ×3 (10:21→20:46)
[2023-02-26] MEDS ORDERED: Iodixanol (CONTRAST) 320 MG/ML 100 ML SDV IV ONE (10:29)
[2023-02-26 10:46] LABS: ABS Basophils 0.2 10^3/uL (0.0-0.1); ABS Eosinophils 0.1 10^3/uL (0.0-0.5); ABS Lymphocytes 0.6 10^3/uL (1.0-4.8); ABS Monocytes 0.9 10^3/uL (0.0-1.1); ABS Neutrophils 14.7 10^3/uL (1.5-7.6); ABS Nucleated RBC 0.03 10^3/ul; Eosinophil % 0.5 %; Lymphocyte % 3.6 %; Nucleated Red Blood Cells % 0.2 /100 WBC (0.0-0.4)
[2023-02-26 11:27] LABS: High Sensitivity Troponin 1 Hr 24 pg/mL (<20)
[2023-02-26] MEDS ORDERED: Warfarin per PHARMACY **NOTE FOLLOW UP SCH (13:00)
[2023-02-26] MEDS ORDERED: Heparin 5000 UNITS/ML 1 mL VIAL SUBCUT SCH (14:00)
[2023-02-26 14:59] LABS: Urine Appearance Clear; Urine Bilirubin Negative (Negative); Urine Blood 1+ (Negative); Urine Color Straw; Urine Glucose Negative (Negative); Urine Ketones Negative (Negative); Urine Nitrite Negative (Negative); Urine Protein 1+(30 mg/dL) (Negative); Urine Specific Gravity 1.012 (1.002-1.030); Urine Urobilinogen Negative (Negative)
[2023-02-26 15:02] LABS: Urine Bacteria Absent (Absent); Urine Red Blood Cell Trace(0-2/hpf) (Absent); Urine White Blood Cell Trace(0-5/hpf) (Absent)
[2023-02-26] MEDS ORDERED: Warfarin - No Order Today **NOTE FOLLOW UP ONE (17:00)
[2023-02-26 21:05] LABS: C Reactive Protein 17.31 mg/L (<8.01)
[2023-02-27 01:33] LABS: PCO2 Arterial 39 mmHg (35-45); PO2 Arterial 86 mmHg (80-100)
[2023-02-27 04:39] LABS: ABS Basophils 0.2 10^3/uL (0.0-0.1); ABS Eosinophils 0.1 10^3/uL (0.0-0.5); ABS Lymphocytes 0.4 10^3/uL (1.0-4.8); ABS Monocytes 1.1 10^3/uL (0.0-1.1); ABS Neutrophils 11.3 10^3/uL (1.5-7.6); ABS Nucleated RBC 0.01 10^3/ul; Hematocrit 38.9 % (38-53); Hemoglobin 12.8 g/dL (13.2-16.3); Lymphocyte % 2.8 %; Mean Corpuscular Hemoglobin 26.6 pg (27-33); Mean Corpuscular Volume 80.7 fL (80-97); Mean Platelet Volume 7.8 fL (7.5-11.2); Nucleated Red Blood Cells % 0.1 /100 WBC (0.0-0.4); Platelet Count 291 10^3/uL (150-450); Red Blood Count 4.82 10^6/uL (4.06-5.63); Red Cell Distribution Width 19.3 % (12-17); White Blood Count 13.1 10^3/uL (3.6-10.2)
[2023-02-27 04:56] LABS: INR 3.33 (0.88-1.18)
[2023-02-27 04:57] LABS: C Reactive Protein 156.11 mg/L (<8.01); Calcium 8.7 mg/dL (8.6-10.3); Creatinine, Serum 1.23 mg/dL (0.67-1.17); Potassium 3.3 mmol/L (3.5-5.0); eGFR CKD-EPI 62.8 (>60)
[2023-02-27] MEDS: Warfarin DAILY REMINDER **NOTE FOLLOW UP SCH ×2 (07:32→17:50)
[2023-02-27] MEDS ORDERED: Potassium Chlor 20 meq TAB.ER PO ONE (07:39)
[2023-02-27] MEDS ORDERED: Aspirin EC 81 mg TAB.EC (enteric coated) PO SCH (09:00)
[2023-02-27] MEDS ORDERED: Magnesium Sulfate 2 gm BAG 2 GM/50 ML BAG IVPB ONE (11:29)
[2023-02-27 11:40] LABS: Magnesium 1.8 mg/dL (1.9-2.7)
[2023-02-27] MEDS ORDERED: Warfarin - No Order Today **NOTE FOLLOW UP ONE (17:00)
[2023-02-27] MEDS ORDERED: Furosemide 20 mg/2 ml IV VIAL IV SLOW PU ONE (17:16)
[2023-02-28 05:58] LABS: ABS Eosinophils 0.4 10^3/uL (0.0-0.5); ABS Lymphocytes 0.4 10^3/uL (1.0-4.8); ABS Monocytes 1.3 10^3/uL (0.0-1.1); ABS Neutrophils 8.3 10^3/uL (1.5-7.6); Eosinophil % 3.9 %; Hematocrit 37.1 % (38-53); Hemoglobin 12.1 g/dL (13.2-16.3); Lymphocyte % 3.9 %; Mean Corpuscular Hemoglobin 26.1 pg (27-33); Mean Corpuscular Hgb Conc 32.6 g/dL (31-36); Mean Corpuscular Volume 80.2 fL (80-97); Mean Platelet Volume 7.7 fL (7.5-11.2); Platelet Count 299 10^3/uL (150-450); Red Blood Count 4.62 10^6/uL (4.06-5.63); Red Cell Distribution Width 19.1 % (12-17); White Blood Count 10.4 10^3/uL (3.6-10.2)
[2023-02-28 06:08] LABS: INR 1.99 (0.88-1.18)
[2023-02-28 06:21] VITALS: BP 121/74
[2023-02-28 06:26] LABS: Calcium 8.7 mg/dL (8.6-10.3); Creatinine, Serum 2.36 mg/dL (0.67-1.17); Potassium 3.9 mmol/L (3.5-5.0); eGFR CKD-EPI 28.7 (>60)
== END 2023-02-28 07:48 | disposition left against medical advice (07) | DRG 291 ==
LOC: ED 09:10 → EDHOLD 12:24 → SUATTDRO 12:24 → MEDTELE 02-27 16:29
PROVIDERS: ADMIT Internal Medicine; ATTEND Internal Medicine

== ENCOUNTER 2023-07-30 13:36 | Inpatient (IN) ==
[2023-07-30 14:52] LABS: PCO2 Arterial 35 mmHg (35-45); PO2 Arterial 110 mmHg (80-100)
[2023-07-30 15:07] LABS: ABS Basophils 0.1 10^3/uL (0.0-0.1); ABS Lymphocytes 0.6 10^3/uL (1.0-4.8); ABS Neutrophils 8.8 10^3/uL (1.5-7.6); ABS Nucleated RBC 0.02 10^3/ul; Eosinophil % 0.2 %; Hematocrit 43.7 % (38-53); Hemoglobin 14.5 g/dL (13.2-16.3); Lymphocyte % 5.3 %; Mean Corpuscular Hemoglobin 26.7 pg (27-33); Mean Corpuscular Hgb Conc 33.1 g/dL (31-36); Mean Corpuscular Volume 80.6 fL (80-97); Mean Platelet Volume 7.4 fL (7.5-11.2); Nucleated Red Blood Cells % 0.2 %/100WBC (0.0-0.8); Platelet Count 402 10^3/uL (150-450); Red Blood Count 5.42 10^6/uL (4.06-5.63); Red Cell Distribution Width 20.5 % (12-17); White Blood Count 10.4 10^3/uL (3.6-10.2)
[2023-07-30 15:08] LABS: Urine Appearance Clear; Urine Bilirubin Negative (Negative); Urine Blood Negative (Negative); Urine Color Amber; Urine Glucose Negative (Negative); Urine Ketones Negative (Negative); Urine Nitrite Negative (Negative); Urine Protein 3+(>=500 mg/dL) (Negative); Urine Specific Gravity 1.023 (1.002-1.030); Urine Urobilinogen Positive (Negative)
[2023-07-30 15:12] LABS: Urine Bacteria Absent (Absent); Urine Red Blood Cell Trace(0-2/hpf) (Absent); Urine Squamous Epithelial Cell Present (Absent); Urine White Blood Cell Trace(0-5/hpf) (Absent)
[2023-07-30 15:12] LABS: Activated Partial Thrombo Time 33.6 seconds (26.0-38.0); INR 1.53 (0.83-1.13)
[2023-07-30 15:23] LABS: Albumin/Globulin Ratio 0.9 (1-3); C Reactive Protein 113.3 mg/L (<8.01); Calcium 9.5 mg/dL (8.6-10.3); Creatinine, Serum 1.11 mg/dL (0.67-1.17); Globulin 4.4 g/dL (2-4); Potassium 4.2 mmol/L (3.5-5.0); Total Protein 8.4 g/dL (6.4-8.9)
[2023-07-30] MEDS ORDERED: Vancomycin 1,000 MG in NS 0.9% 250 ml 250 ML IVPB ONE (16:11)
[2023-07-30] MEDS ORDERED: Piperacillin/Tazobac 3.375 BAG 3.375 GM/100 ML BAG IV ONE (16:11)
[2023-07-30] MEDS ORDERED: Metoprolol Tartrate 5 mg VIAL 5 ml VIAL (1 mg/ml) IV ONE (16:31)
[2023-07-30] MEDS ORDERED: Furosemide 20 mg/2 ml IV VIAL IV SLOW PU ONE (16:32)
[2023-07-30 16:47] LABS: High Sensitivity Troponin 1 Hr 288 pg/mL (<20)
[2023-07-30] MEDS ORDERED: Iohexol 350 (CONTRAST) 500 ML MDV IV ONE (16:54)
[2023-07-30] MEDS ORDERED: Furosemide 40 mg/4 ml IV VIAL IV SLOW PU ONE (19:59)
[2023-07-30] MEDS ORDERED: Zosyn per Pharmacy NOTE FOLLOW UP SCH (20:00)
[2023-07-30] MEDS ORDERED: Vancomycin per Pharmacy 1 EA NOTE FOLLOW UP SCH (20:00)
[2023-07-30] MEDS ORDERED: Acetaminophen IV 1 GM/100ML 1,000 MG/100 ML BAG IV PRN (20:25)
[2023-07-30] MEDS: ZOSYN 3.375 GM Q8H per EXTENDED INFUSION IV SCH (20:26)
[2023-07-30] MEDS ORDERED: Polyethylene Glycol 3350 17 GM PACKET PO PRN (20:28)
[2023-07-30] MEDS ORDERED: Warfarin per PHARMACY **NOTE FOLLOW UP SCH (21:00)
[2023-07-31] MEDS: Vancomycin 1000 MG in NS 0.9% 250 ML IVPB SCH ×2 (05:12→16:40)
[2023-07-31 06:59] LABS: Albumin 3.3 g/dL (3.2-5.2); Calcium 8.5 mg/dL (8.6-10.3); Creatinine, Serum 1.11 mg/dL (0.67-1.17); Globulin 3.4 g/dL (2-4); Magnesium 1.7 mg/dL (1.9-2.7); Total Bilirubin 2.1 mg/dL (0.2-1.0); Total Protein 6.7 g/dL (6.4-8.9)
[2023-07-31 07:06] LABS: INR 1.82 (0.83-1.13)
[2023-07-31] MEDS: ZOSYN 3.375 GM Q8H per EXTENDED INFUSION IV SCH ×3 (07:22→20:49)
[2023-07-31 07:24] LABS: ABS Basophils 0.1 10^3/uL (0.0-0.1); ABS Lymphocytes 0.4 10^3/uL (1.0-4.8); ABS Monocytes 0.9 10^3/uL (0.0-1.1); ABS Neutrophils 8.4 10^3/uL (1.5-7.6); ABS Nucleated RBC 0.01 10^3/ul; Eosinophil % 0.2 %; Hematocrit 40.4 % (38-53); Hemoglobin 13.2 g/dL (13.2-16.3); Lymphocyte % 3.9 %; Mean Corpuscular Hemoglobin 26.4 pg (27-33); Mean Corpuscular Hgb Conc 32.6 g/dL (31-36); Mean Corpuscular Volume 80.9 fL (80-97); Mean Platelet Volume 7.5 fL (7.5-11.2); Nucleated Red Blood Cells % 0.1 %/100WBC (0.0-0.8); Platelet Count 292 10^3/uL (150-450); Red Blood Count 4.99 10^6/uL (4.06-5.63); White Blood Count 9.8 10^3/uL (3.6-10.2)
[2023-07-31] MEDS ORDERED: Sulfur Hexaflouride MICROSPHR 25 MG VIAL ONE (08:26)
[2023-07-31] MEDS: Aspirin EC 81 mg TAB.EC (enteric coated) PO SCH (08:53)
[2023-07-31] MEDS ORDERED: Magnesium Sulfate IV 1GM/100ML 1 GM/100 ML BAG IV ONE (09:22)
[2023-07-31] MEDS ORDERED: Furosemide 40 mg/4 ml IV VIAL IV SLOW PU ONE (17:05)
[2023-07-31] MEDS: Warfarin DAILY REMINDER **NOTE FOLLOW UP SCH (17:42)
[2023-08-01] MEDS: ZOSYN 3.375 GM Q8H per EXTENDED INFUSION IV SCH ×3 (04:14→20:04)
[2023-08-01 04:29] LABS: Hematocrit 36.1 % (38-53); Hemoglobin 11.9 g/dL (13.2-16.3); INR 1.92 (0.83-1.13); Mean Corpuscular Hemoglobin 26.2 pg (27-33); Mean Corpuscular Hgb Conc 32.9 g/dL (31-36); Mean Corpuscular Volume 79.8 fL (80-97); Mean Platelet Volume 7.3 fL (7.5-11.2); Platelet Count 267 10^3/uL (150-450); Red Blood Count 4.52 10^6/uL (4.06-5.63); Red Cell Distribution Width 20.2 % (12-17); White Blood Count 7.1 10^3/uL (3.6-10.2)
[2023-08-01] MEDS ORDERED: Vancomycin Trough Check NOTE FOLLOW UP ONE (04:30)
[2023-08-01 04:47] LABS: Albumin 2.9 g/dL (3.2-5.2); Albumin/Globulin Ratio 0.9 (1-3); Calcium 8.1 mg/dL (8.6-10.3); Creatinine, Serum 1.08 mg/dL (0.67-1.17); Globulin 3.1 g/dL (2-4); Magnesium 1.8 mg/dL (1.9-2.7); Potassium 3.8 mmol/L (3.5-5.0); Total Bilirubin 1.2 mg/dL (0.2-1.0); eGFR CKD-EPI 73.4 (>60)
[2023-08-01] MEDS ORDERED: Magnesium Sulfate 2 gm BAG 2 GM/50 ML BAG IVPB ONE (05:18)
[2023-08-01] MEDS: Vancomycin 1000 MG in NS 0.9% 250 ML IVPB SCH (05:45)
[2023-08-01] MEDS: Aspirin EC 81 mg TAB.EC (enteric coated) PO SCH (07:45)
[2023-08-01] MEDS ORDERED: Magnesium Sulfate IV 1GM/100ML 1 GM/100 ML BAG IV ONE (09:14)
[2023-08-01] MEDS ORDERED: Furosemide 40 mg/4 ml IV VIAL IV SLOW PU ONE ×2 (13:24→18:26)
[2023-08-01] MEDS: Warfarin DAILY REMINDER **NOTE FOLLOW UP SCH (18:05)
[2023-08-02] MEDS: ZOSYN 3.375 GM Q8H per EXTENDED INFUSION IV SCH ×4 (05:26→23:45)
[2023-08-02] MEDS ORDERED: Furosemide 40 mg/4 ml IV VIAL IV SLOW PU ONE (06:30)
[2023-08-02 06:36] LABS: Hematocrit 37.2 % (38-53); Hemoglobin 12.3 g/dL (13.2-16.3); Mean Corpuscular Hemoglobin 26.5 pg (27-33); Mean Corpuscular Volume 80.3 fL (80-97); Mean Platelet Volume 7.4 fL (7.5-11.2); Platelet Count 296 10^3/uL (150-450); Red Blood Count 4.64 10^6/uL (4.06-5.63); Red Cell Distribution Width 19.9 % (12-17); White Blood Count 7.5 10^3/uL (3.6-10.2)
[2023-08-02 06:43] LABS: INR 1.72 (0.83-1.13)
[2023-08-02 06:52] LABS: Calcium 8.5 mg/dL (8.6-10.3); Creatinine, Serum 0.99 mg/dL (0.67-1.17); Potassium 3.8 mmol/L (3.5-5.0); eGFR CKD-EPI 81.4 (>60)
[2023-08-02] MEDS: Aspirin EC 81 mg TAB.EC (enteric coated) PO SCH (09:35)
[2023-08-02 19:45] LABS: Magnesium 1.8 mg/dL (1.9-2.7); Phosphorus 4.1 mg/dL (2.5-5.0)
[2023-08-03] MEDS ORDERED: Haloperidol 5 mg/ml SDV IV/IM 5 MG/ML AMP IV SLOW PU ONE (00:35)
[2023-08-03 05:26] LABS: Hematocrit 37.7 % (38-53); Hemoglobin 12.5 g/dL (13.2-16.3); Mean Corpuscular Hemoglobin 26.5 pg (27-33); Mean Corpuscular Hgb Conc 33.2 g/dL (31-36); Mean Corpuscular Volume 79.6 fL (80-97); Mean Platelet Volume 7.3 fL (7.5-11.2); Platelet Count 286 10^3/uL (150-450); Red Blood Count 4.74 10^6/uL (4.06-5.63); Red Cell Distribution Width 19.7 % (12-17); White Blood Count 6.3 10^3/uL (3.6-10.2)
[2023-08-03 05:27] LABS: INR 1.78 (0.83-1.13)
[2023-08-03 05:43] LABS: Calcium 8.6 mg/dL (8.6-10.3); Creatinine, Serum 1.07 mg/dL (0.67-1.17); Magnesium 1.8 mg/dL (1.9-2.7); Phosphorus 3.6 mg/dL (2.5-5.0); Potassium 4.1 mmol/L (3.5-5.0); eGFR CKD-EPI 74.2 (>60)
[2023-08-03] MEDS: Aspirin EC 81 mg TAB.EC (enteric coated) PO SCH (08:53)
[2023-08-03] MEDS: ZOSYN 3.375 GM Q8H per EXTENDED INFUSION IV SCH ×3 (08:53→23:58)
[2023-08-03] MEDS: Warfarin DAILY REMINDER **NOTE FOLLOW UP SCH ×2 (08:54→19:20)
[2023-08-03] MEDS: Magnesium Sulfate 2 gm BAG 2 GM/50 ML BAG IVPB ONE ×2 (11:32→11:39)
[2023-08-03] MEDS ORDERED: Furosemide 20 mg/2 ml IV VIAL IV SLOW PU ONE (13:59)
[2023-08-04 04:15] LABS: Hematocrit 38.3 % (38-53); Hemoglobin 12.6 g/dL (13.2-16.3); Mean Corpuscular Hgb Conc 32.9 g/dL (31-36); Mean Platelet Volume 7.3 fL (7.5-11.2); Platelet Count 316 10^3/uL (150-450); Red Blood Count 4.85 10^6/uL (4.06-5.63); Red Cell Distribution Width 19.7 % (12-17); White Blood Count 6.5 10^3/uL (3.6-10.2)
[2023-08-04 04:21] LABS: INR 1.89 (0.83-1.13)
[2023-08-04 04:33] LABS: Calcium 8.7 mg/dL (8.6-10.3); Creatinine, Serum 1.11 mg/dL (0.67-1.17); Magnesium 1.9 mg/dL (1.9-2.7); Phosphorus 3.6 mg/dL (2.5-5.0); Potassium 3.9 mmol/L (3.5-5.0)
[2023-08-04 05:55] VITALS: BP 150/83
== END 2023-08-04 09:15 | disposition home or self-care (01) | DRG 189 ==
LOC: ED 13:36 → EDHOLD 19:14 → SUATTDRO 19:14 → ICU 07-31 13:47 → MEDTELE 08-02 18:44
PROVIDERS: ADMIT Internal Medicine; ATTEND Student in an Organized Health Care Education/Training Program

== ENCOUNTER 2023-08-29 15:29 | Inpatient (IN) ==
[2023-08-29 16:50] LABS: ABS Eosinophils 0.3 10^3/uL (0.0-0.5); ABS Lymphocytes 0.4 10^3/uL (1.0-4.8); ABS Monocytes 0.8 10^3/uL (0.0-1.1); ABS Neutrophils 7.8 10^3/uL (1.5-7.6); Eosinophil % 3.7 %; Hematocrit 37.5 % (38-53); Hemoglobin 12.5 g/dL (13.2-16.3); Lymphocyte % 4.6 %; Mean Corpuscular Hemoglobin 25.8 pg (27-33); Mean Corpuscular Hgb Conc 33.2 g/dL (31-36); Mean Corpuscular Volume 77.7 fL (80-97); Mean Platelet Volume 7.6 fL (7.5-11.2); Platelet Count 408 10^3/uL (150-450); Red Blood Count 4.83 10^6/uL (4.06-5.63); Red Cell Distribution Width 19.5 % (12-17); White Blood Count 9.4 10^3/uL (3.6-10.2)
[2023-08-29 17:00] LABS: Activated Partial Thrombo Time 32.5 seconds (26.0-38.0); INR 1.51 (0.83-1.13)
[2023-08-29 17:09] LABS: Albumin 3.5 g/dL (3.2-5.2); Albumin/Globulin Ratio 0.8 (1-3); Creatinine, Serum 0.87 mg/dL (0.67-1.17); Globulin 4.2 g/dL (2-4); Potassium 3.3 mmol/L (3.5-5.0); Total Bilirubin 1.5 mg/dL (0.2-1.0); Total Protein 7.7 g/dL (6.4-8.9); eGFR CKD-EPI 92.2 (>60)
[2023-08-29 17:26] LABS: Magnesium 1.5 mg/dL (1.9-2.7)
[2023-08-29 17:54] LABS: TSH Ultra Thyroid Stim Horm 1.32 mcIU/mL (0.34-5.60)
[2023-08-29] MEDS: Potassium EFFERVES 25 meq TAB PO ONE (18:12)
[2023-08-29 18:35] LABS: High Sensitivity Troponin 1 Hr 105 pg/mL (<20)
[2023-08-29] MEDS: Iodixanol (CONTRAST) 320 MG/ML 100 ML SDV IV ONE (19:34)
[2023-08-29 21:26] LABS: Urine Appearance Clear; Urine Bilirubin Negative (Negative); Urine Blood Negative (Negative); Urine Color Amber; Urine Glucose Negative (Negative); Urine Ketones Negative (Negative); Urine Nitrite Negative (Negative); Urine Protein 3+(>=500 mg/dL) (Negative); Urine Specific Gravity 1.018 (1.002-1.030); Urine Urobilinogen Negative (Negative)
[2023-08-29 21:41] LABS: Urine Bacteria Absent (Absent); Urine Red Blood Cell Trace(0-2/hpf) (Absent); Urine White Blood Cell Trace(0-5/hpf) (Absent)
[2023-08-29] MEDS: Furosemide 20 mg/2 ml IV VIAL IV SLOW PU ONE (22:31)
[2023-08-30] MEDS: Metoprolol Tartrate 5 mg VIAL 5 ml VIAL (1 mg/ml) IV ONE (01:55)
[2023-08-30 02:25] LABS: PCO2 Arterial 37 mmHg (35-45); PO2 Arterial 78 mmHg (80-100)
[2023-08-30 06:45] LABS: Calcium 8.8 mg/dL (8.6-10.3); Magnesium 1.5 mg/dL (1.9-2.7); Potassium 4.2 mmol/L (3.5-5.0); eGFR CKD-EPI 80.5 (>60)
[2023-08-30 06:50] LABS: ABS Basophils 0.1 10^3/uL (0.0-0.1); ABS Eosinophils 0.4 10^3/uL (0.0-0.5); ABS Lymphocytes 0.5 10^3/uL (1.0-4.8); ABS Monocytes 1.1 10^3/uL (0.0-1.1); ABS Neutrophils 8.1 10^3/uL (1.5-7.6); Eosinophil % 4.2 %; Hematocrit 39.1 % (38-53); Lymphocyte % 5.3 %; Mean Corpuscular Hemoglobin 26.2 pg (27-33); Mean Corpuscular Hgb Conc 33.2 g/dL (31-36); Mean Corpuscular Volume 79.1 fL (80-97); Mean Platelet Volume 7.7 fL (7.5-11.2); Platelet Count 371 10^3/uL (150-450); Red Blood Count 4.94 10^6/uL (4.06-5.63); White Blood Count 10.2 10^3/uL (3.6-10.2)
[2023-08-30] MEDS: Magnesium Sulf 4 GM/100 ML IV 4,000 MG/100 ML BAG IVPB ONE (08:49)
[2023-08-30] MEDS: Metoprolol Tartrate 5 mg VIAL 5 ml VIAL (1 mg/ml) IV PRN ×2 (08:49→18:11)
[2023-08-30] MEDS: Aspirin EC 81 mg TAB.EC (enteric coated) PO SCH (08:49)
[2023-08-30] MEDS: Lactated Ringers 1000 ml BAG 1,000 ML IV SCH (18:36)
[2023-08-30] MEDS: cefTRIAXone 2 gm/50 mL D5W 2 GM/50 ML BAG IV SCH (20:14)
[2023-08-30] MEDS: Azithromycin 500 mg/250 ml NS 500 MG/250 ML BAG IVPB SCH (20:28)
[2023-08-31 06:54] LABS: Hematocrit 41.6 % (38-53); Hemoglobin 13.2 g/dL (13.2-16.3); Mean Corpuscular Hemoglobin 25.9 pg (27-33); Mean Corpuscular Hgb Conc 31.8 g/dL (31-36); Mean Corpuscular Volume 81.4 fL (80-97); Platelet Count 362 10^3/uL (150-450); Red Blood Count 5.11 10^6/uL (4.06-5.63); Red Cell Distribution Width 20.1 % (12-17); White Blood Count 10.5 10^3/uL (3.6-10.2)
[2023-08-31 07:23] LABS: Calcium 8.3 mg/dL (8.6-10.3); Creatinine, Serum 0.97 mg/dL (0.67-1.17); Magnesium 1.9 mg/dL (1.9-2.7); eGFR CKD-EPI 83.5 (>60)
[2023-08-31 07:41] LABS: Potassium 4.3 mmol/L (3.5-5.0)
[2023-08-31] MEDS: Furosemide 40 mg/4 ml IV VIAL IV ONE (12:03)
[2023-09-01] MEDS: Furosemide 40 mg/4 ml IV VIAL IV ONE ×2 (11:15→13:54)
[2023-09-01 11:31] LABS: Hematocrit 33.7 % (38-53); Hemoglobin 11.2 g/dL (13.2-16.3); Mean Corpuscular Hgb Conc 33.3 g/dL (31-36); Mean Platelet Volume 7.4 fL (7.5-11.2); Platelet Count 469 10^3/uL (150-450); Red Blood Count 4.32 10^6/uL (4.06-5.63); Red Cell Distribution Width 19.4 % (12-17); White Blood Count 10.5 10^3/uL (3.6-10.2)
[2023-09-01 11:49] LABS: Calcium 8.5 mg/dL (8.6-10.3); Creatinine, Serum 0.88 mg/dL (0.67-1.17); Potassium 3.8 mmol/L (3.5-5.0); eGFR CKD-EPI 91.9 (>60)
[2023-09-01] MEDS: Haloperidol 5 mg/ml SDV IV/IM 5 MG/ML AMP IM PRN (21:54)
[2023-09-02] MEDS: Haloperidol 5 mg/ml SDV IV/IM 5 MG/ML AMP IM ONE (03:09)
[2023-09-02 06:14] LABS: Hematocrit 36.7 % (38-53); Mean Corpuscular Hemoglobin 25.7 pg (27-33); Mean Corpuscular Hgb Conc 32.8 g/dL (31-36); Mean Corpuscular Volume 78.3 fL (80-97); Mean Platelet Volume 7.5 fL (7.5-11.2); Platelet Count 534 10^3/uL (150-450); Red Cell Distribution Width 19.5 % (12-17); White Blood Count 11.1 10^3/uL (3.6-10.2)
[2023-09-02 06:31] LABS: Calcium 8.8 mg/dL (8.6-10.3); Creatinine, Serum 0.88 mg/dL (0.67-1.17); Magnesium 1.6 mg/dL (1.9-2.7); Potassium 3.5 mmol/L (3.5-5.0); eGFR CKD-EPI 91.9 (>60)
[2023-09-02] MEDS: Magnesium Sulf 4 GM/100 ML IV 4,000 MG/100 ML BAG IVPB ONE (11:27)
[2023-09-02] MEDS: Potassium EFFERVES 25 meq TAB PO ONE (11:27)
[2023-09-02] MEDS: Bumetanide IV 0.25 MG/ML 4 ml VIAL (1 mg) IV SLOW PU ONE (11:27)
[2023-09-02 13:41] VITALS: BP 98/61
[2023-09-02 16:36] LABS: Ferritin 266.1 ng/mL (24-336)
== END 2023-09-02 17:30 | disposition home or self-care (01) | DRG 308 ==
LOC: ED 15:29 → SUATTDRO 08-30 01:19 → EDHOLD 08-30 01:19 → MEDTELE 08-30 11:01
PROVIDERS: ADMIT Student in an Organized Health Care Education/Training Program; ATTEND Student in an Organized Health Care Education/Training Program